=== PATIENT | male | born 1995 | race Caucasian/White ===

== ENCOUNTER 2021-06-04 11:41 | Emergency (ER) | payer SELFPAY ==
[~2021-06-04] VITALS: Ht 170.2 cm; Wt 95.3 kg
[2021-06-04] MEDS ORDERED: NAPROXEN250 MG PO (13:02)
== END 2021-06-04 13:17 | disposition home or self-care (01) ==
LOC: ER 12:17
DX: S80.11XA Contusion of right lower leg, initial encounter (principal); W20.8XXA Other cause of strike by thrown, projected or falling object, initial encounter
CPT/HCPCS: 99283